=== PATIENT | male | born 1980 | race Caucasian/White ===

== ENCOUNTER 2017-02-09 16:34 | Emergency (ER) | payer MEDICAID ==
[~2017-02-09] VITALS: Ht 180.3 cm; Wt 118.4 kg
--- NOTE | 2017-02-09 19:08 | NUR ---
Received report from MAGDA Edwards. Assumed care of pt at this time. Dr. Vazquez at bedside for MSE, awaiting further orders.
--- NOTE | 2017-02-09 19:14 | NUR ---
Patient discharged to home in stable conditon. Written and verbal after care instructions given. Patient verbalizes understanding of instructions.pt walks in steady care. pt deneis any headache, dizziness at this time.
[2017-02-09 19:16] VITALS: BP 171/98
== END 2017-02-09 19:16 | disposition home or self-care (01) ==
LOC: ER 16:35
DX: I10 Essential (primary) hypertension (principal); K02.9 Dental caries, unspecified
CPT/HCPCS: 99283; A4663